=== PATIENT | female | born 1995 ===

== ENCOUNTER 2018-10-06 17:37 | Emergency (ER) | payer MEDICAID ==
[2018-10-06 17:47] VITALS: BP 117/80; PULSE 99; RESP 20; TEMP 98.7; O2SAT 100
--- NOTE | 2018-10-06 18:46 | ED PDOC ---
HPI: Eye Injury/Pain Time Seen by Provider: 10/06/18 18:08 Chief Complaint (Nursing): Eye Problem Chief Complaint (Provider): Eye Problem History Per: Patient History/Exam Limitations: no limitations Onset/Duration Of Symptoms: Days (x1) Current Symptoms Are (Timing): Still Present Additional Complaint(s): Patient is a 22 y/o female with a PMHx of obesity s/p gastric sleeve surgery on 10/02/18, who presents to the ED for evaluation of right eye irritation since yesterday. Patient woke up with her right eye shut due to yellow crusting. Patient states she is a contact lens user. Patient denies fever, chills, visual changes, and eye pain. PCP: None Provided Past Medical History Reviewed: Historical Data, Nursing Documentation, Vital Signs Vital Signs: Last Vital Signs Temp 98.7 F 10/06/18 17:45 Pulse 99 H 10/06/18 17:45 Resp 20 10/06/18 17:45 BP 117/80 10/06/18 17:45 Pulse Ox 100 10/06/18 17:45 - Medical History Other PMH: Obesity - Surgical History Other surgeries: gastric sleeve - Family History Family History: States: Unknown Family Hx - Home Medications Home Medications: Ambulatory Orders Medication Instructions Recorded Provera 08/05/17 Acetaminophen [Tylenol Extra 2 tab PO Q6 PRN #30 tablet 08/06/17 Strength] Guaifenesin/Dextromethorphan 1 tab PO BID PRN #14 tab.er.12h 08/06/17 [Mucinex Dm ER 1,200-60 mg Tab] Metoclopramide [Reglan] 1 tab PO TID PRN #15 tab 08/06/17 Oseltamivir Cap [Tamiflu] 75 mg PO BID #10 cap 08/06/17 Moxifloxacin HCl [Vigamox] 1 drop OD Q2 7 Days drops 10/06/18 - Allergies Allergies/Adverse Reactions: Allergies Allergy/AdvReac Type Severity Reaction Status Date / Time brenda Allergy Verified 08/05/17 22:41 Review of Systems ROS Statement: Except As Marked, All Systems Reviewed And Found Negative Constitutional: Negative for: Fever, Chills Eyes: Negative for: Vision Change ENT: Positive for: Other (Right eye irritation and closure due to yellow crusting). Negative for: Ear Pain Physical Exam - Reviewed Nursing Documentation Reviewed: Yes Vital Signs Reviewed: Yes - Physical Exam Appears: Positive for: No Acute Distress Head Exam: Positive for: ATRAUMATIC, NORMAL INSPECTION, NORMOCEPHALIC Eye Exam: Positive for: Normal appearance (with tearing and mild edema of right eye), EOMI, Conjunctival injection (of right eye). Negative for: Other (no drainage appreciated) Neurological/Psych: Positive for: Alert, Oriented - ECG O2 Sat by Pulse Oximetry: 100 (RA) Pulse Ox Interpretation: Normal Medical Decision Making Medical Decision Making: Time: 1834 Impression: Bacterial Conjunctivitis Plan: Dispo with antibiotics Scribe Attestation: Documented by Zac Amaya, acting as a scribe for DELBERT Galan Provider Scribe Attestation: All medical record entries made by the Scribe were at my direction and personally dictated by me. I have reviewed the chart and agree that the record accurately reflects my personal performance of the history, physical exam, medical decision making, and the department course for this patient. I have also personally directed, reviewed, and agree with the discharge instructions and disposition. Disposition - Clinical Impression Clinical Impression: Conjunctivitis Counseled Patient/Family Regarding: Studies Performed, Diagnosis, Need For Followup, Rx Given - Disposition Referrals: Shaik Gill MD [Family Provider] - Disposition: Routine/Home Disposition Time: 18:40 Condition: STABLE Additional Instructions: Complete full course of antibiotic drops as prescribed. Follow up with ophthalmology if your symptoms persist despite drops. Do not use contacts while eye irritation persists. Prescriptions: Moxifloxacin HCl [Vigamox] 1 drop OD Q2 7 Days drops Instructions: Conjunctivitis ([place]key[place]) (DC) Forms: [email or web address] (Icelandic) Print Language: VIETNAMESE - POA Present On Arrival: None
== END 2018-10-06 18:52 | disposition home or self-care (01) ==
LOC: H.ER 17:37
DX: H10.89 Other conjunctivitis (principal); E66.9 Obesity, unspecified; Z98.84 Bariatric surgery status

== ENCOUNTER 2018-10-09 08:45 | Emergency (ER) | payer MEDICAID ==
[2018-10-09 08:47] VITALS: BMI 48.0
[2018-10-09 08:49] VITALS: BP 117/79; PULSE 88; RESP 16; TEMP 98.3; O2SAT 97
[2018-10-09] MEDS ORDERED: Iohexol 240 (50 ml) PO ONE (09:41)
[2018-10-09] MEDS ORDERED: Sodium Chloride 0.9% 1,000 ML IV STA (09:41)
[2018-10-09 09:47] LABS: BASO # 0.1 K/uL (0.0-0.2); BASO % 0.8 % (0.0-2.0); EOS # 0.3 K/uL (0.0-0.7); EOS % 3.5 % (0.0-4.0); HEMOGLOBIN 14.6 g/dL (12.0-16.0); LYMPH # 2.6 K/uL (1.0-4.3); LYMPH % 29.4 % (20.0-40.0); MEAN CELL VOLUME 87.3 fl (81.0-99.0); MEAN CORPUSCULAR HEMOGLOBIN 28.4 pg (27.0-31.0); MEAN CORPUSCULAR HGB CONC 32.5 g/dL (33.0-37.0); MEAN PLATELET VOLUME 7.9 fl (7.2-11.7); MONO # 0.8 K/uL (0.0-0.8); MONO % 9.1 % (0.0-10.0); NEUT # 5.1 K/uL (1.8-7.0); NEUT % 57.2 % (50.0-75.0); NRBC % 0.1 % (0.0-0.0); RBC 5.13 Mil/uL (3.80-5.20); RED CELL DISTRIBUTION WIDTH 13.3 % (11.5-14.5)
[2018-10-09 09:56] LABS: SQUAMOUS EPITHIAL 84 /hpf (0-5); URINE AMORPHOUS SEDIMENT RARE /ul (<OCC); URINE BACTERIA OCC (<OCC); URINE BILIRUBIN SMALL (NEGATIVE); URINE BLOOD NEGATIVE (NEGATIVE); URINE CLARITY TURBID (Clear); URINE COLOR AMBER (YELLOW); URINE GLUCOSE (UA) NEG (NEGATIVE); URINE LEUKOCYTE ESTERASE MOD Leu/uL (Negative); URINE PROTEIN 100 mg/dL (NEGATIVE)
[2018-10-09 10:03] LABS: ALB/GLOB RATIO 1.1 (1.0-2.1); ALBUMIN 4.2 g/dL (3.5-5.0); ALT/SGPT 38 U/L (9-52); AST/SGOT 47 U/L (14-36); BLOOD UREA NITROGEN 10 mg/dl (7-17); CALCIUM 9.8 mg/dL (8.4-10.2); GFR NON-AFRICAN AMERICAN > 60; LIPASE 25 U/L (23-300)
--- NOTE | 2018-10-09 11:21 | ED PDOC ---
HPI: Abdomen Time Seen by Provider: 10/09/18 09:08 Chief Complaint (Nursing): Abdominal Pain Chief Complaint (Provider): abdominal pain, nausea History Per: Patient History/Exam Limitations: no limitations Outside of [place] travel?: No Current Symptoms Are (Timing): Intermittent Episodes Severity: Moderate Location Of Pain/Discomfort: Epigastric Associated Symptoms: Nausea, Loss Of Appetite, Back Pain, Constipation. denies: Vomiting, Urinary Symptoms Exacerbating Factors: None Alleviating Factors: None Last Bowel Movement: Days Ago (2) Additional Complaint(s): 22yo female s/p laparoscopic gastric sleeve POD 7 performed at [facility] presents c/o epigastric pain radiating to the back, associated with nausea but no vomiting, diarrhea or fever. Notes mild constipation, but on liquid diet until the when she sees surgeon again. No blood in stool. Past Medical History Reviewed: Historical Data, Nursing Documentation, Vital Signs Vital Signs: Last Vital Signs Temp 98.3 F 10/09/18 08:47 Pulse 88 10/09/18 08:47 Resp 16 10/09/18 08:47 BP 117/79 10/09/18 08:47 Pulse Ox 97 10/09/18 08:47 - Medical History PMH: No Chronic Diseases - Surgical History Other surgeries: gastric sleeve 10/02/18 - Family History Family History: States: Unknown Family Hx - Living Arrangements Living Arrangements: With Family - Home Medications Home Medications: Ambulatory Orders Medication Instructions Recorded Provera 08/05/17 Acetaminophen [Tylenol Extra 2 tab PO Q6 PRN #30 tablet 08/06/17 Strength] Guaifenesin/Dextromethorphan 1 tab PO BID PRN #14 tab.er.12h 08/06/17 [Mucinex Dm ER 1,200-60 mg Tab] Metoclopramide [Reglan] 1 tab PO TID PRN #15 tab 08/06/17 Oseltamivir Cap [Tamiflu] 75 mg PO BID #10 cap 08/06/17 Moxifloxacin HCl [Vigamox] 1 drop OD Q2 7 Days drops 10/06/18 Ondansetron ODT [Zofran ODT] 4 mg PO Q6 PRN #10 odt 10/09/18 - Allergies Allergies/Adverse Reactions: Allergies Allergy/AdvReac Type Severity Reaction Status Date / Time brenda Allergy Verified 08/05/17 22:41 Review of Systems Constitutional: Negative for: Fever Cardiovascular: Negative for: Chest Pain Respiratory: Negative for: Cough, Shortness of Breath Gastrointestinal: Positive for: Nausea, Abdominal Pain, Constipation. Negative for: Vomiting, Melena, Hematochezia, Hematemesis Genitourinary Female: Negative for: Dysuria Musculoskeletal: Positive for: Back Pain. Negative for: Neck Pain, Shoulder Pain Skin: Negative for: Rash, Lesions Neurological: Negative for: Weakness, Numbness Psych: Negative for: Depression Physical Exam - Reviewed Nursing Documentation Reviewed: Yes Vital Signs Reviewed: Yes - Physical Exam Appears: Positive for: Well, Non-toxic, No Acute Distress Head Exam: Positive for: ATRAUMATIC, NORMAL INSPECTION, NORMOCEPHALIC Skin: Positive for: Normal Color, Warm, DRY Eye Exam: Positive for: EOMI, Normal appearance, PERRL ENT: Positive for: Normal ENT Inspection Neck: Positive for: Normal, Painless ROM Cardiovascular/Chest: Positive for: Regular Rate, Rhythm Respiratory: Positive for: CNT, Normal Breath Sounds Pulses-Radial (L): 3+/4+ Pulses-Radial (R): 3+/4+ Gastrointestinal/Abdominal: Positive for: Soft, Tenderness (mild epigastric tenderness). Negative for: Distended, Guarding, Rebound, Hernia, Asicites Back: Positive for: Normal Inspection Extremity: Positive for: Normal ROM Neurological/Psych: Positive for: Awake, Alert, Normal Tone, Oriented - Laboratory Results Result Diagrams: 10/09/18 09:27 10/09/18 09:27 Lab Results: Total Bilirubin 0.8 mg/dl (0.2-1.3) 10/09/18 09:27 AST 47 U/L (14-36) H 10/09/18 09:27 ALT 38 U/L (9-52) 10/09/18 09:27 Alkaline Phosphatase 89 U/L (38-126) 10/09/18 09:27 Total Protein 7.9 G/DL (6.3-8.2) 10/09/18 09:27 Albumin 4.2 g/dL (3.5-5.0) 10/09/18 09:27 Globulin 3.7 gm/dL (2.2-3.9) 10/09/18 09:27 Albumin/Globulin Ratio 1.1 (1.0-2.1) 10/09/18 09:27 Lipase 25 U/L (23-300) 10/09/18 09:27 Urine Color [place] (YELLOW) 10/09/18 09:27 Urine Clarity Turbid (Clear) 10/09/18 09:27 Urine pH 5.0 (5.0-8.0) 10/09/18 09:27 Ur Specific [place] 1.034 (1.003-1.030) H 10/09/18 09:27 Urine Protein 100 mg/dL (NEGATIVE) 10/09/18 09:27 Urine Glucose (UA) Neg mg/dL (NEGATIVE) 10/09/18 09:27 Urine Ketones 20 mg/dL (NEGATIVE) 10/09/18 09:27 Urine Blood Negative (NEGATIVE) 10/09/18 09:27 Urine Nitrate Negative (NEGATIVE) 10/09/18 09:27 Urine Bilirubin Small (NEGATIVE) 10/09/18 09:27 Urine Urobilinogen 4.0 mg/dL (0.2-1.0) H 10/09/18 09:27 Ur Leukocyte Esterase Mod [place]/uL (Negative) 10/09/18 09:27 Urine RBC (Auto) 6 /hpf (0-3) H 10/09/18 09:27 Urine Microscopic WBC 15 /hpf (0-5) H 10/09/18 09:27 Ur Squamous Epith Cells 84 /hpf (0-5) H 10/09/18 09:27 Amorphous Sediment Rare /ul (<OCC) H 10/09/18 09:27 Urine Bacteria Occ (<OCC) H 10/09/18 09:27 Urine POC: Negative Urine dip results: Positive for: Leukocyte Esterase (TR but ++sq epi) - ECG O2 Sat by Pulse Oximetry: 97 Medical Decision Making Medical Decision Making: labs and CT report reviewed patient improved over course of ED stay When returned to room to inform of results, already had coat on and wanted to be discharged. DC from ED, has followup with surgeon upcoming. Stressed adherence to diet and indications for return. Disposition - Clinical Impression Clinical Impression: Abdominal pain, Postoperative abdominal pain Counseled Patient/Family Regarding: Studies Performed, Diagnosis - Disposition Disposition: Routine/Home Disposition Time: 13:30 Condition: STABLE Additional Instructions: Followup with your surgeon as directed, return to ER for any worse or new symptoms, fever, weakness, blood in stool, vomiting, or any concern. Prescriptions: Ondansetron ODT [Zofran ODT] 4 mg PO Q6 PRN #10 odt PRN Reason: Nausea/Vomiting Instructions: Acute Abdomen (Belly Pain), Adult (DC), Nausea and Vomiting, Adult (DC), Postoperative Pain (DC), Managing Pain After Surgery Forms: [employer] (Fijian)
[2018-10-09] MEDS ORDERED: Sodium Chloride 0.9% 50 ML IV ONE (11:54)
[2018-10-09] MEDS ORDERED: Iohexol 300 100 ML IJ ONE (11:54)
--- NOTE | 2018-10-09 13:05 | CT ---
Date of service: 10/09/2018 PROCEDURE: CT Abdomen and Pelvis with contrast HISTORY: gastric sleeve one week ago, upper abd pain COMPARISON: None available. TECHNIQUE: CT scan of the abdomen and pelvis was performed after administration of intravenous contrast. Oral contrast was administered. Coronal and sagittal reformatted images were obtained. Contrast dose: 100 mL Omnipaque 300 Radiation dose: Total exam DLP = 923.42 mGy-cm. This CT exam was performed using one or more of the following dose reduction techniques: Automated exposure control, adjustment of the mA and/or kV according to patient size, and/or use of iterative reconstruction technique. FINDINGS: LOWER THORAX: There is dependent atelectasis in the lung bases, worse on the right. LIVER: Normal in size with homogeneous enhancement. No gross lesion or ductal dilatation. GALLBLADDER AND BILE DUCTS: Well distended. No calcified gallstones, wall thickening or pericholecystic fluid. PANCREAS: Normal in size with homogeneous enhancement. No gross lesion or ductal dilatation. SPLEEN: Normal in size and appearance. ADRENALS: No discrete nodule. KIDNEYS AND URETERS: Normal in size with homogeneous enhancement. No hydronephrosis. No solid mass. VASCULATURE: No aortic aneurysm. There are no aortic atherosclerotic calcifications or mural plaque present. BOWEL: Postsurgical changes of gastric sleeve surgery. The stomach is decompressed. The small bowel loops are normal in caliber. The colon is grossly normal in appearance. No bowel wall thickening or obstruction. APPENDIX: Normal appendix. PERITONEUM: No free fluid. No free air. LYMPH NODES: No enlarged lymph nodes. BLADDER: Well distended and normal in appearance. REPRODUCTIVE: The uterus is normal in size. BONES: No acute fracture. Within normal limits for the patient's age. OTHER FINDINGS: None. IMPRESSION: Postsurgical changes of gastric sleeve surgery. No acute abdominal or pelvic abnormality.
== END 2018-10-09 13:59 | disposition home or self-care (01) ==
LOC: H.ER 08:45
DX: G89.18 Other acute postprocedural pain (principal)
CPT/HCPCS: 74177; 80053; 81003; 81025; 83690; 85025; 96374; 96375; 99283; J2405; J7030; Q9966; Q9967